=== PATIENT | female | born 1960 | race Two or more races ===

== ENCOUNTER 2017-06-14 12:28 | Emergency (ER) | payer SELFPAY ==
[~2017-06-14] VITALS: Ht 167.6 cm; Wt 57.2 kg
--- NOTE | 2017-06-14 12:49 | NUR ---
BB TO ER C/O HEADACHE
[2017-06-14 14:26] VITALS: BP 130/80
--- NOTE | 2017-06-14 14:26 | NUR ---
Patient discharged to home in stable condition. Written and verbal after care instructions given. Patient verbalizes understanding of instruction.
== END 2017-06-14 14:27 | disposition home or self-care (01) ==
LOC: ER 12:30
DX: R51 Headache (principal); M54.2 Cervicalgia; F41.9 Anxiety disorder, unspecified; M54.6 Pain in thoracic spine; F10.20 Alcohol dependence, uncomplicated; F17.200 Nicotine dependence, unspecified, uncomplicated; V29.9XXA Motorcycle rider (driver) (passenger) injured in unspecified traffic accident, initial encounter; Y93.89 Activity, other specified; Y92.89 Other specified places as the place of occurrence of the external cause; Y99.9 Unspecified external cause status
CPT/HCPCS: 70450; 99284; A4606; Z7610